=== PATIENT | female | born 1925 | race Caucasian/White ===

== ENCOUNTER 2016-09-18 11:59 | Inpatient (IN) | payer MEDICARE ==
[~2016-09-18] VITALS: Ht 152.4 cm; Wt 73.5 kg
[2016-09-18] MEDS ORDERED: VANCOMYCIN 1.75 GM in IV NORMAL SALINE 500ML BAG 500 ML IV ONE (13:00)
[2016-09-18 13:11] LABS: BASO # 0.1 x10^3/uL (0.0-0.2); BASO % 0 % (0-3); EOS % 0 % (0-3); HEMATOCRIT 30.2 % (36.0-47.0); HEMOGLOBIN 9.2 g/dL (12.0-15.5); LYMPH # 1.2 x10^3/uL (1.0-4.8); LYMPH % 6 % (24-48); MEAN CORPUSCULAR HEMOGLOBIN 23 pg (25-35); MEAN CORPUSCULAR HGB CONC 31 g/dL (31-37); MEAN CORPUSCULAR VOLUME 74 fL (79-100); MONO % 9 % (0-9); NEUT % 84 % (31-73); PLATELET COUNT 564 x10^3/uL (140-400); RED BLOOD COUNT 4.08 x10^6/uL (3.50-5.40); RED CELL DISTRIBUTION WIDTH 18.8 % (11.5-14.5); WHITE BLOOD COUNT 19.5 x10^3/uL (4.0-11.0)
[2016-09-18 13:13] LABS: CREATININE 0.9 mg/dL (0.6-1.0); GFR 59.1
[2016-09-18 13:17] LABS: POTASSIUM 2.9 mmol/L (3.5-5.1)
--- NOTE | 2016-09-18 13:21 | RAD ---
Right lower extremity venous ultrasound, 09/18/2016 : History: Right lower leg redness Duplex evaluation including grayscale, color flow and spectral Doppler analysis was performed. The femoral and popliteal veins show no filling defects to suggest DVT. The visualized calf veins are unremarkable. IMPRESSION: There is no sonographic evidence of deep vein thrombosis in the right lower extremity
[2016-09-18] MEDS ORDERED: ACETAMINOPHEN 325 MG TABLET. PO PRN ×2 (14:15→16:30)
[2016-09-18] MEDS ORDERED: ONDANSETRON PF 4 MG/2 ML VIAL. IV PRN ×2 (14:15→16:30)
[2016-09-18] MEDS ORDERED: FENTANYL PF 100 MCG/2 ML VIAL. IV PRN (14:15)
[2016-09-18 15:00] VITALS: BP 169/64
[2016-09-18 15:21] VITALS: BP 169/64
[2016-09-18] MEDS: POTASSIUM CHLORIDE 10MEQ 100 ML IV SCH ×4 (15:33→18:28)
[2016-09-18] MEDS: VANCOMYCIN PER PHARMACY MC PRN (15:49)
--- NOTE | 2016-09-18 16:24 | PHYS DOC ---
Past Medical History Past Medical History: No Pertinent History Past Surgical History: Appendectomy Alcohol Use: None Drug Use: None Adult General Chief Complaint Chief Complaint: LOWER EXT PAIN HPI HPI Patient is a 89 year old female who presents with right lower extremity cellulitis. Patient has dementia, unable to provide history. Reportedly sent from [facility] for cellulitis for about 2 days. Had been taking doxycycline per medical record. To me she denies any pain. Denies fevers or chills, nausea or vomiting, chest pain, shortness of breath. Review of Systems Review of Systems Constitutional: Denies fever or chills HENT: Denies nasal congestion or sore throat Respiratory: Denies cough or shortness of breath Cardiovascular: Denies chest pain or edema GI: Denies abdominal pain, nausea, vomiting, or diarrhea Musculoskeletal: Denies back pain or joint pain Integument: Reports right lower extremity cellulitis Neurologic: Denies headache, focal weakness or sensory changes Current Medications Current Medications Current Medications Medications (Trade) Dose Ordered Sig/Moris Start Time Stop Time Status Last Admin Dose Admin Vancomycin HCl 1 each 1 each PRN DAILY PRN 09/18/16 12:30 09/18/16 15:49 1 EACH Vancomycin HCl/ Sodium Chloride (Iv Sodium Chloride 0.9% 500ml Bag) 500 ml @ 250 mls/hr 1X ONCE 09/18/16 13:00 09/18/16 14:59 DC 09/18/16 12:40 250 MLS/HR Allergies Allergies Allergies Coded Allergies Type Severity Reaction Last Updated Verified No Known Drug Allergies 09/18/16 No Physical Exam Physical Exam Constitutional: obese, no acute distress, non-toxic appearance. HENT: Normocephalic, atraumatic, bilateral external ears normal, oropharynx moist, nose normal. Eyes: conjunctiva normal, no discharge. Neck: supple, no stridor. Cardiovascular: RRR, no murmurs, no edema. Lungs & Thorax: LCTAB, no wheezing, no respiratory distress. Abdomen: soft, nontender, nondistended. Skin: right lower extremity erythema, warmth, swelling. Back: No tenderness. Extremities: right lower extremity erythema, warmth, swelling from ankle to knee , dp/pt 2+, sensation intact to foot, no ankle or knee tenderness with palpation. Neurologic: Alert and oriented X 2, no focal deficits noted. Psychologic: Affect normal, judgement normal, mood normal. Current Patient Data Vital Signs Vital Signs Date Time Temp Pulse Resp B/P Pulse Ox O2 Delivery O2 Flow Rate FiO2 09/18/16 13:36 79 18 166/67 97 Room Air 09/18/16 12:00 98.2 98.2 Lab Values Laboratory Tests Test 09/18/16 12:05 White Blood Count 19.5x10^3/uL (4.0-11.0) H Red Blood Count 4.08x10^6/uL (3.50-5.40) Hemoglobin 9.2g/dL (12.0-15.5) L Hematocrit 30.2% (36.0-47.0) L Mean Corpuscular Volume 74fL (79-100) L Mean Corpuscular Hemoglobin 23pg (25-35) L Mean Corpuscular Hemoglobin Concent 31g/dL (31-37) Red Cell Distribution Width 18.8% (11.5-14.5) H Platelet Count 564x10^3/uL (140-400) H Neutrophils (%) (Auto) 84% (31-73) H Lymphocytes (%) (Auto) 6% (24-48) L Monocytes (%) (Auto) 9% (0-9) Eosinophils (%) (Auto) 0% (0-3) Basophils (%) (Auto) 0% (0-3) Neutrophils # (Auto) 16.4x10^3uL (1.8-7.7) H Lymphocytes # (Auto) 1.2x10^3/uL (1.0-4.8) Monocytes # (Auto) 1.8x10^3/uL (0.0-1.1) H Eosinophils # (Auto) 0.0x10^3/uL (0.0-0.7) Basophils # (Auto) 0.1x10^3/uL (0.0-0.2) Platelet Estimate Pending Sodium Level 142mmol/L (136-145) Potassium Level 2.9mmol/L (3.5-5.1) *L Chloride Level 102mmol/L (98-107) Carbon Dioxide Level 28mmol/L (21-32) Anion Gap 12 (6-14) Blood Urea Nitrogen 20mg/dL (7-20) Creatinine 0.9mg/dL (0.6-1.0) Estimated GFR (Cockcroft-Gault) 59.1 Glucose Level 132mg/dL (70-99) H Calcium Level 9.0mg/dL (8.5-10.1) LX-Juy-B-Type Natriuretic Peptide 1929pg/mL (0-449) H Laboratory Tests 09/18/16 12:05 Laboratory Tests 09/18/16 12:05 EKG EKG [] Radiology/Procedures Radiology/Procedures PROCEDURE: VENOUS LOWER EXTREMITY RIGHT Right lower extremity venous ultrasound, 09/18/2016 : History: Right lower leg redness Duplex evaluation including grayscale, color flow and spectral Doppler analysis was performed. The femoral and popliteal veins show no filling defects to suggest DVT. The visualized calf veins are unremarkable. IMPRESSION: There is no sonographic evidence of deep vein thrombosis in the right lower extremity DICTATED and SIGNED BY: ROSSY ESPINOSA MD DATE: 09/18/16 1317 [] Course & Med Decision Making Course & Med Decision Making Pertinent Labs and Imaging studies reviewed. (See chart for details) Patient presents with right lower extremity cellulitis. Afebrile, elevated white blood cell count. Had been taking doxycycline with progression of illness. Recommended admission to the hospital for further evaluation and treatment. Administered vancomycin here. Discussed with Dr. Barr who agrees to admit to inpatient status. Patient admitted in stable condition. [] Dragon Disclaimer Dragon Disclaimer This electronic medical record was generated, in whole or in part, using a voice recognition dictation system. Departure Departure Impression: Primary Impression: Cellulitis of right lower extremity Additional Impressions: Leukocytosis Essential hypertension Hypokalemia Disposition: ADMITTED INPATIENT Condition: STABLE Referrals: NO PCP (PCP) Problem Qualifiers FADY PUENTE MD Sep 18, 2016 16:24
[2016-09-18] MEDS ORDERED: HYDROCODONE/APAP 5/325MG TABLET. PO PRN (16:30)
[2016-09-18] MEDS ORDERED: ALBUTEROL SULFATE 2.5 MG/3 ML NEBU. NEB PRN (16:30)
[2016-09-18] MEDS ORDERED: hydrALAZINE 20 MG/ML VIAL. IVP PRN (16:30)
[2016-09-18 16:57] LABS: PLT ESTIMATE INCREASED (ADEQUATE); POLYCHROMASIA SLIGHT
[2016-09-18 16:58] LABS: ANISOCYTOSIS SLIGHT; CRENATED RBC PRESENT; OVALOCYTES OCC; SCHISTOCYTES FEW
[2016-09-18] MEDS ORDERED: DOXY100T PO (17:33)
[2016-09-18] MEDS ORDERED: ACET325T9 PO (17:33)
[2016-09-18] MEDS ORDERED: POTA10CA PO (17:33)
[2016-09-18] MEDS ORDERED: FURO-69 PO (17:33)
--- NOTE | 2016-09-18 18:14 | ACF ---
Admission Forms Criteria CELLULITIS Clinical Indications for Admission to Inpatient Care (Place 'X' for any and all applicable criteria): Admission is indicated for ANY ONE of the following(1)(2)(3)(4)(5): [ ]I. Limb-threatening infection [ ]II. High-risk comorbid condition as indicated by ANY ONE of the following: [ ]a) Uncontrolled diabetes (eg, HbA1c greater than 10% (0.1)) [ ]b) Cirrhosis [ ]c) Neutropenia [ ]d) Asplenia [ ]e) Immunosuppression [ ]f) Symptomatic heart failure [ ]III. Failure of outpatient therapy as indicated by ALL of the following: [ ]a) Progression or no improvement after adequate trial (minimum of 48 hours, with longer period for stable lower extremity infection) [ ]b) Adequate antibiotic regimen as indicated by use of ANY ONE of the following: [ ]i) First-generation cephalosporin (e.g., cephalexin) [ ]ii) Antistaphylococcal penicillin (e.g., dicloxacillin) [ ]iii) Penicillin-allergic patient regimen (clindamycin, extended-spectrum fluoroquinolone, or doxycycline) [ ]iv) Resistant organism (eg, methicillin-resistant Staphylococcus aureus) regimen (6) [ ]c) Outpatient intravenous therapy regimen is not appropriate due to ANY ONE of the following. (7)(8)(9)(10): [ ]i) It was tried and was not successful (eg, progression of infection). [ ]ii) It is not available or cannot be arranged in a clinically appropriate time frame (e.g., the next day). [ ]iii) Clinical presentation (eg, acuity of infection, rapidity of progression, confirmed or suspected bacteremia) is judged to require ALL of the following: [ ]1) Immediate initiation of intravenous therapy ( eg, cannot wait for next day) [ ]2) Intensity of patient monitoring and observation (eg, vital sign measurement, checks for infection progression) that cannot be provided at other than inpatient level of care [ ]IV. Mental status changes [ ]V. Bacteremia [ ]. Hemodynamic instability [ ]VII. Suspected necrotizing soft tissue infection (e.g., gas in tissue)(11)( 12) [ ]VIII. Orbital infection (13)(14) [ ]IX. Associated surgical procedure (e.g., abscess drainage, debridement) not amenable to outpatient, emergency department, or observation care [ ]X. Cutaneous gangrene [ ]XI. High fever (temperature greater than 39.5 degrees C (103.1 degrees F) (oral)) not responsive to outpatient, emergency department, or observation care therapy [X]XIII. Inpatient admission required rather than observation care (Also use Cellulitis: Observation Care as appropriate) because of ANY ONE of the following : [ ]a) Periorbital or perineal infection that is severe or worsening [ ]b) Severe pain requiring acute inpatient management [ ]c) IV fluid to replace significant ongoing (e.g., for over 24 hours) losses (greater than 3L/m2 per day) [ ]d) Compartment syndrome monitoring (17) [ ]e) Strict or protective (eg, laminar flow) isolation [ ]f) Urgent debridement or skin grafting [ ]g) Bone or joint debridement [ ]h) Immediate inpatient surgery [X]i) Other condition, treatment or monitoring requiring inpatient admission Extended stay beyond goal length of stay may be needed for (1)(18): [ ]a) Necrotizing soft tissue infection or fasciitis [ ]b) Gram-negative infection [ ]c) Methicillin-resistant Staphylococcal aureus (MRSA) infection [ ]d) Peripheral venous insufficiency with cellulitis [ ]e) Extensive edema [ ]f) Sepsis or continued Hemodynamic instability [ ]g) Continued high fever or mental status change [ ]h) Bacteremia [ ]i) Active serious comorbid conditions ( eg, heart failure, renal insufficiency) The original [employer] [employer] content created by [employer] has been revised. The portions of the content which have been revised are identified through the use of italic text or in bold, and [facility] has neither reviewed nor approved the modified material. All other unmodified content is copyright [employer] [facility] Please see references footnoted in the original [employer] [employer] edition 2016 Admission Criteria Met?: Yes NÉSTOR LEVY Sep 18, 2016 18:14
[2016-09-18 19:00] VITALS: BP 159/74
--- NOTE | 2016-09-18 21:10 | PDOC1 ---
History and Physical Current Problem List Problem List Problems Medical Problems: (1) Cellulitis Status: Acute (2) Cellulitis of right lower extremity Status: Acute (3) Essential hypertension Status: Acute (4) Hypokalemia Status: Acute (5) Leukocytosis Status: Acute Current Medications Current Medications Current Medications Medications (Trade) Dose Ordered Sig/Moris Start Time Stop Time Status Last Admin Dose Admin Acetaminophen (Tylenol) 650 mg PRN Q6HRS PRN 09/18/16 16:30 Acetaminophen 650 mg 650 mg PRN Q4HRS PRN 09/18/16 14:15 09/19/16 14:14 Acetaminophen/ Hydrocodone Bitart (Lortab 5/325) 1 tab PRN Q6HRS PRN 09/18/16 16:30 Albuterol Sulfate (Ventolin Neb Soln) 2.5 mg PRN Q4HRS PRN 09/18/16 16:30 Fentanyl Citrate (Fentanyl 2ml Vial) 25 mcg PRN Q2HR PRN 09/18/16 14:15 09/19/16 14:14 Hydralazine HCl (Apresoline) 10 mg PRN Q4HRS PRN 09/18/16 16:30 Ondansetron HCl (Zofran) 4 mg PRN Q6HRS PRN 09/18/16 16:30 Potassium Chloride 100 ml @ 100 mls/hr Q1H 09/18/16 14:30 09/18/16 18:29 DC 09/18/16 18:28 100 MLS/HR Vancomycin HCl 1 each 1X ONCE 09/20/16 11:30 09/20/16 11:31 Vancomycin HCl 1 each 1 each PRN DAILY PRN 09/18/16 12:30 09/18/16 15:49 1 EACH Vancomycin HCl/ Sodium Chloride (Iv Sodium Chloride 0.9% 250ml) 250 ml @ 250 mls/hr Q24H 09/19/16 12:00 Vancomycin HCl/ Sodium Chloride (Iv Sodium Chloride 0.9% 500ml Bag) 500 ml @ 250 mls/hr 1X ONCE 09/18/16 13:00 09/18/16 14:59 DC 09/18/16 12:40 250 MLS/HR Allergies Allergies Allergies Coded Allergies Type Severity Reaction Last Updated Verified No Known Drug Allergies 09/18/16 No ROS Review of System CONSTITUTIONAL: No fever or chills EYES: No recent changes SKIN: RLE rash CARDIOVASCULAR: No chest pain, syncope, palpitations, or edema RESPIRATORY: No SOB or cough GASTROINTESTINAL: No nausea, vomiting or abdominal pain NEUROLOGICAL: Dementia. ENDOCRINE: No cold or heat intolerance GENITOURINARY: No urgency or frequency of urination MUSCULOSKELETAL: No back pain or joint pain LYMPHATICS: No enlarged lymph nodes PSYCHIATRIC: No anxiety or depression Physical Exam Physical Exam GEN.: No apparent distress. Alert and oriented. HEENT: Head is normocephalic, atraumatic NECK: Supple. no JVD LUNGS: Clear to auscultation. normal airflow HEART: RRR, S1, S2 present. Peripheral pulses intact ABDOMEN: Soft, nontender. Positive bowel sounds. EXTREMITIES: Without any cyanosis. NEUROLOGIC: alert, she thinks she lives in [place] PSYCHIATRIC: pleasant, SKIN: RLE - Erythema on ankle to knee, dorsal Vitals Vitals Vital Signs Date Time Temp Pulse Resp B/P Pulse Ox O2 Delivery O2 Flow Rate FiO2 09/18/16 19:32 95 Room Air 09/18/16 19:00 98.2 83 20 159/74 98.2 09/18/16 15:21 2.0 Labs Labs Laboratory Tests Test 09/18/16 12:05 White Blood Count 19.5x10^3/uL (4.0-11.0) Red Blood Count 4.08x10^6/uL (3.50-5.40) Hemoglobin 9.2g/dL (12.0-15.5) Hematocrit 30.2% (36.0-47.0) Mean Corpuscular Volume 74fL (79-100) Mean Corpuscular Hemoglobin 23pg (25-35) Mean Corpuscular Hemoglobin Concent 31g/dL (31-37) Red Cell Distribution Width 18.8% (11.5-14.5) Platelet Count 564x10^3/uL (140-400) Neutrophils (%) (Auto) 84% (31-73) Lymphocytes (%) (Auto) 6% (24-48) Monocytes (%) (Auto) 9% (0-9) Eosinophils (%) (Auto) 0% (0-3) Basophils (%) (Auto) 0% (0-3) Neutrophils # (Auto) 16.4x10^3uL (1.8-7.7) Lymphocytes # (Auto) 1.2x10^3/uL (1.0-4.8) Monocytes # (Auto) 1.8x10^3/uL (0.0-1.1) Eosinophils # (Auto) 0.0x10^3/uL (0.0-0.7) Basophils # (Auto) 0.1x10^3/uL (0.0-0.2) Segmented Neutrophils % 92% (35-66) Lymphocytes % 3% (24-48) Monocytes % 5% (0-10) Platelet Estimate Increased (ADEQUATE) Polychromasia Slight Anisocytosis Slight Ovalocytes Occ Crenated Cell Present Schistocytes Few Sodium Level 142mmol/L (136-145) Potassium Level 2.9mmol/L (3.5-5.1) Chloride Level 102mmol/L (98-107) Carbon Dioxide Level 28mmol/L (21-32) Anion Gap 12 (6-14) Blood Urea Nitrogen 20mg/dL (7-20) Creatinine 0.9mg/dL (0.6-1.0) Estimated GFR (Cockcroft-Gault) 59.1 Glucose Level 132mg/dL (70-99) Calcium Level 9.0mg/dL (8.5-10.1) QP-Bqq-V-Type Natriuretic Peptide 1929pg/mL (0-449) Laboratory Tests Test 09/18/16 12:05 White Blood Count 19.5x10^3/uL (4.0-11.0) Red Blood Count 4.08x10^6/uL (3.50-5.40) Hemoglobin 9.2g/dL (12.0-15.5) Hematocrit 30.2% (36.0-47.0) Mean Corpuscular Volume 74fL (79-100) Mean Corpuscular Hemoglobin 23pg (25-35) Mean Corpuscular Hemoglobin Concent 31g/dL (31-37) Red Cell Distribution Width 18.8% (11.5-14.5) Platelet Count 564x10^3/uL (140-400) Neutrophils (%) (Auto) 84% (31-73) Lymphocytes (%) (Auto) 6% (24-48) Monocytes (%) (Auto) 9% (0-9) Eosinophils (%) (Auto) 0% (0-3) Basophils (%) (Auto) 0% (0-3) Neutrophils # (Auto) 16.4x10^3uL (1.8-7.7) Lymphocytes # (Auto) 1.2x10^3/uL (1.0-4.8) Monocytes # (Auto) 1.8x10^3/uL (0.0-1.1) Eosinophils # (Auto) 0.0x10^3/uL (0.0-0.7) Basophils # (Auto) 0.1x10^3/uL (0.0-0.2) Segmented Neutrophils % 92% (35-66) Lymphocytes % 3% (24-48) Monocytes % 5% (0-10) Platelet Estimate Increased (ADEQUATE) Polychromasia Slight Anisocytosis Slight Ovalocytes Occ Crenated Cell Present Schistocytes Few Sodium Level 142mmol/L (136-145) Potassium Level 2.9mmol/L (3.5-5.1) Chloride Level 102mmol/L (98-107) Carbon Dioxide Level 28mmol/L (21-32) Anion Gap 12 (6-14) Blood Urea Nitrogen 20mg/dL (7-20) Creatinine 0.9mg/dL (0.6-1.0) Estimated GFR (Cockcroft-Gault) 59.1 Glucose Level 132mg/dL (70-99) Calcium Level 9.0mg/dL (8.5-10.1) UI-Dhr-J-Type Natriuretic Peptide 1929pg/mL (0-449) VTE Prophylaxis Ordered VTE Prophylaxis Devices: Yes VTE Pharmacological Prophylaxi: Yes URSULA LAO MD Sep 18, 2016 21:10
[2016-09-18] MEDS: HEPARIN PF for SUB-Q USE 5,000 UNIT/0.5 ML VIAL. SQ SCH (22:40)
[2016-09-18 23:06] VITALS: BP 158/61
--- NOTE | 2016-09-19 00:41 | HP ---
ADMIT DATE: 09/18/2016 CHIEF COMPLAINT: Right lower extremity redness. HISTORY OF PRESENT ILLNESS: An 89-year-old female patient with possible dementia, brought to the hospital from [facility] with complaints of right lower extremity redness, which started nearly a few days ago. At the time of my examination, the patient denies any pain. She is very pleasant; however, she is not able to provide good history. She thinks that her brain is not working properly these days. Reportedly, the patient was taking some doxycycline in the [place] [facility]; however, symptoms did not improve; most of the history is obtained from the ER notes. No immediate family available for confirmation. PAST MEDICAL HISTORY: Not able to obtain. PAST SURGICAL HISTORY: Possible appendectomy. PERSONAL HISTORY: The patient lives in a [place] [facility]. ALLERGIES: NKDA. REVIEW OF SYSTEMS AND PHYSICAL EXAMINATION: Please see my electronic H and P. LABORATORY FINDINGS: WBC 19.5, hemoglobin is 9.2, hematocrit 30.2, platelets 564. Potassium 2.9, sodium 142, carbon dioxide 28, BUN 20, creatinine 0.9, chloride is 132. Right lower extremity venous ultrasound did not show any DVT. ASSESSMENT: 1. Right lower extremity cellulitis. 2. Leukocytosis. 3. Hypokalemia. 4. Essential hypertension. PLAN: 1. She has been placed on vancomycin, pharmacy to dose vancomycin. 2. We will consult Infectious Disease. 3. Home medications need to be verified and once we verify with the [place] [facility], we will continue home medications. 4. P.r.n. hydralazine for high blood pressure. 5. Potassium has been replaced. 6. Pain control with Lortab. 7. DVT prophylaxis with heparin. 8. Prognosis is guarded. URSULA LAO MD DR: SIENNA/som JOB#: [id number] / [id number] ELI
[2016-09-19 02:36] VITALS: BP 128/47
[2016-09-19 04:34] LABS: BASO # 0.1 x10^3/uL (0.0-0.2); BASO % 0 % (0-3); EOS % 0 % (0-3); HEMATOCRIT 25.7 % (36.0-47.0); LYMPH # 1.5 x10^3/uL (1.0-4.8); LYMPH % 8 % (24-48); MEAN CORPUSCULAR HEMOGLOBIN 23 pg (25-35); MEAN CORPUSCULAR HGB CONC 31 g/dL (31-37); MEAN CORPUSCULAR VOLUME 74 fL (79-100); MONO % 9 % (0-9); NEUT % 83 % (31-73); PLATELET COUNT 477 x10^3/uL (140-400); RED CELL DISTRIBUTION WIDTH 18.8 % (11.5-14.5); WHITE BLOOD COUNT 19.2 x10^3/uL (4.0-11.0)
[2016-09-19 04:43] LABS: CALCIUM 8.3 mg/dL (8.5-10.1); CREATININE 0.8 mg/dL (0.6-1.0); GFR 67.7; POTASSIUM 3.2 mmol/L (3.5-5.1)
[2016-09-19] MEDS: HEPARIN PF for SUB-Q USE 5,000 UNIT/0.5 ML VIAL. SQ SCH ×3 (06:09→21:50)
[2016-09-19 07:00] VITALS: BP 166/60
[2016-09-19] MEDS: VANCOMYCIN PER PHARMACY MC PRN (10:17)
[2016-09-19] MEDS ORDERED: ACETAMINOPHEN 325 MG TABLET. PO PRN (10:45)
--- NOTE | 2016-09-19 10:49 | PDOC ---
PROGRESS NOTES Chief Complaint Chief Complaint 1. Right LE cellulitis. ASSESSMENT AND PLAN: 1. Cellulitis: failed O/P doxy, now on vanco. mild erythema, edema improved. appreciate ID service input 2. Leukocytosis: ongoing, reactive. 3. Hypokalemia: sl improved. most likely related to Po lasix at home. replete orally 4. HTN: no home meds x lasix. consider low dose AVERY-I. IV hydralazine PRN 5. Anemia: microcytic with thrombocytosis. suspicious for iron deficiency. obtain iron labs 6. Prophylaxis: heparin Vitals Vitals Vital Signs Date Time Temp Pulse Resp B/P Pulse Ox O2 Delivery O2 Flow Rate FiO2 09/19/16 07:00 98.8 89 16 166/60 91 Room Air 98.8 09/18/16 15:21 2.0 Labs LABS Laboratory Tests Test 09/18/16 12:05 09/18/16 16:40 09/19/16 03:55 White Blood Count 19.5x10^3/uL (4.0-11.0) 19.2x10^3/uL (4.0-11.0) Red Blood Count 4.08x10^6/uL (3.50-5.40) 3.50x10^6/uL (3.50-5.40) Hemoglobin 9.2g/dL (12.0-15.5) 8.0g/dL (12.0-15.5) Hematocrit 30.2% (36.0-47.0) 25.7% (36.0-47.0) Mean Corpuscular Volume 74fL (79-100) 74fL (79-100) Mean Corpuscular Hemoglobin 23pg (25-35) 23pg (25-35) Mean Corpuscular Hemoglobin Concent 31g/dL (31-37) 31g/dL (31-37) Red Cell Distribution Width 18.8% (11.5-14.5) 18.8% (11.5-14.5) Platelet Count 564x10^3/uL (140-400) 477x10^3/uL (140-400) Neutrophils (%) (Auto) 84% (31-73) 83% (31-73) Lymphocytes (%) (Auto) 6% (24-48) 8% (24-48) Monocytes (%) (Auto) 9% (0-9) 9% (0-9) Eosinophils (%) (Auto) 0% (0-3) 0% (0-3) Basophils (%) (Auto) 0% (0-3) 0% (0-3) Neutrophils # (Auto) 16.4x10^3uL (1.8-7.7) 15.9x10^3uL (1.8-7.7) Lymphocytes # (Auto) 1.2x10^3/uL (1.0-4.8) 1.5x10^3/uL (1.0-4.8) Monocytes # (Auto) 1.8x10^3/uL (0.0-1.1) 1.7x10^3/uL (0.0-1.1) Eosinophils # (Auto) 0.0x10^3/uL (0.0-0.7) 0.0x10^3/uL (0.0-0.7) Basophils # (Auto) 0.1x10^3/uL (0.0-0.2) 0.1x10^3/uL (0.0-0.2) Segmented Neutrophils % 92% (35-66) Lymphocytes % 3% (24-48) Monocytes % 5% (0-10) Platelet Estimate Increased (ADEQUATE) Polychromasia Slight Anisocytosis Slight Ovalocytes Occ Crenated Cell Present Schistocytes Few Sodium Level 142mmol/L (136-145) 139mmol/L (136-145) Potassium Level 2.9mmol/L (3.5-5.1) 3.2mmol/L (3.5-5.1) Chloride Level 102mmol/L (98-107) 104mmol/L (98-107) Carbon Dioxide Level 28mmol/L (21-32) 26mmol/L (21-32) Anion Gap 12 (6-14) 9 (6-14) Blood Urea Nitrogen 20mg/dL (7-20) 15mg/dL (7-20) Creatinine 0.9mg/dL (0.6-1.0) 0.8mg/dL (0.6-1.0) Estimated GFR (Cockcroft-Gault) 59.1 67.7 Glucose Level 132mg/dL (70-99) 101mg/dL (70-99) Calcium Level 9.0mg/dL (8.5-10.1) 8.3mg/dL (8.5-10.1) FH-Fpd-C-Type Natriuretic Peptide 1929pg/mL (0-449) Nasal Screen MRSA (PCR) Positive (Negative) Review of Systems Review of Systems feels ok, denies pain PATRICK FLOWERS MD Sep 19, 2016 10:49
[2016-09-19 10:54] VITALS: BP 163/74
[2016-09-19 10:58] LABS: % SAT IRON 6 % (15-34); IRON,SERUM 12 ug/dL (50-170)
[2016-09-19] MEDS ORDERED: FUROSEMIDE 20 MG TABLET PO SCH (12:00)
[2016-09-19] MEDS: VANCOMYCIN 1 GM in IV NORMAL SALINE 250ML 250 ML IV SCH (12:15)
[2016-09-19] MEDS: FUROSEMIDE 20 MG TABLET PO SCH (12:16)
[2016-09-19] MEDS: POTASSIUM CHLORIDE 10 MEQ TABLET.ER. PO SCH (12:16)
--- NOTE | 2016-09-19 12:38 | PDOC ---
Infectious Disease Note Vital Sign Vital Signs Vital Signs Date Time Temp Pulse Resp B/P Pulse Ox O2 Delivery O2 Flow Rate FiO2 09/19/16 10:54 97.9 72 16 163/74 90 Room Air 97.9 09/18/16 15:21 2.0 Labs Lab Laboratory Tests Test 09/18/16 16:40 09/19/16 03:55 09/19/16 05:50 Nasal Screen MRSA (PCR) Positive (Negative) White Blood Count 19.2x10^3/uL (4.0-11.0) Red Blood Count 3.50x10^6/uL (3.50-5.40) Hemoglobin 8.0g/dL (12.0-15.5) Hematocrit 25.7% (36.0-47.0) Mean Corpuscular Volume 74fL (79-100) Mean Corpuscular Hemoglobin 23pg (25-35) Mean Corpuscular Hemoglobin Concent 31g/dL (31-37) Red Cell Distribution Width 18.8% (11.5-14.5) Platelet Count 477x10^3/uL (140-400) Neutrophils (%) (Auto) 83% (31-73) Lymphocytes (%) (Auto) 8% (24-48) Monocytes (%) (Auto) 9% (0-9) Eosinophils (%) (Auto) 0% (0-3) Basophils (%) (Auto) 0% (0-3) Neutrophils # (Auto) 15.9x10^3uL (1.8-7.7) Lymphocytes # (Auto) 1.5x10^3/uL (1.0-4.8) Monocytes # (Auto) 1.7x10^3/uL (0.0-1.1) Eosinophils # (Auto) 0.0x10^3/uL (0.0-0.7) Basophils # (Auto) 0.1x10^3/uL (0.0-0.2) Sodium Level 139mmol/L (136-145) Potassium Level 3.2mmol/L (3.5-5.1) Chloride Level 104mmol/L (98-107) Carbon Dioxide Level 26mmol/L (21-32) Anion Gap 9 (6-14) Blood Urea Nitrogen 15mg/dL (7-20) Creatinine 0.8mg/dL (0.6-1.0) Estimated GFR (Cockcroft-Gault) 67.7 Glucose Level 101mg/dL (70-99) Calcium Level 8.3mg/dL (8.5-10.1) Iron Level 12ug/dL (50-170) Total Iron Binding Capacity 206ug/dL (250-450) Iron Saturation 6% (15-34) Ferritin 73ng/mL (8-252) Objective Assessment Cellulitis of RLE - warm but not overtly tender -Failed OP doxy Leukocytosis MRSA nares positive Dementia HTN Plan Plan of Care vanc - leg appears to be wrinkling already - hopefully improving. Will need compression when improves more Monitor response CBC in am Leg elevation Thank you Attending Co-Sign Attending Co-Sign The patient was seen and interviewed as well as examined at the bedside. The chart was reviewed. The case was discussed. Agree with the plan of care. KAILEY SCHILLING APRN Sep 19, 2016 12:38 ANN-MARIE VIDES MD Sep 19, 2016 13:30
[2016-09-19 14:55] VITALS: BP 148/62
[2016-09-19 19:59] VITALS: BP 149/63
[2016-09-19 23:59] VITALS: BP 152/54
[2016-09-20 03:59] VITALS: BP 159/68
[2016-09-20] MEDS: HEPARIN PF for SUB-Q USE 5,000 UNIT/0.5 ML VIAL. SQ SCH ×3 (05:37→21:23)
[2016-09-20 05:54] LABS: BASO % 0 % (0-3); EOS % 0 % (0-3); HEMATOCRIT 25.9 % (36.0-47.0); HEMOGLOBIN 7.9 g/dL (12.0-15.5); LYMPH # 1.7 x10^3/uL (1.0-4.8); LYMPH % 10 % (24-48); MEAN CORPUSCULAR HEMOGLOBIN 23 pg (25-35); MEAN CORPUSCULAR HGB CONC 31 g/dL (31-37); MEAN CORPUSCULAR VOLUME 74 fL (79-100); MONO % 7 % (0-9); NEUT % 82 % (31-73); PLATELET COUNT 536 x10^3/uL (140-400); RED BLOOD COUNT 3.51 x10^6/uL (3.50-5.40); RED CELL DISTRIBUTION WIDTH 19.4 % (11.5-14.5); WHITE BLOOD COUNT 17.7 x10^3/uL (4.0-11.0)
[2016-09-20 07:00] VITALS: BP 145/66
[2016-09-20] MEDS: POTASSIUM CHLORIDE 10 MEQ TABLET.ER. PO SCH (07:56)
[2016-09-20] MEDS: FUROSEMIDE 20 MG TABLET PO SCH (07:57)
--- NOTE | 2016-09-20 10:18 | PDOC ---
Infectious Disease Note Subjective Subjective Comfortable Denies pain ROS ROS GEN: Denies fevers, chills, sweats CV: Denies chest pain RESP: Denies shortness of air, cough GI: Denies n/v/d Vital Sign Vital Signs Vital Signs Date Time Temp Pulse Resp B/P Pulse Ox O2 Delivery O2 Flow Rate FiO2 09/20/16 07:00 97.9 72 18 145/66 93 Room Air 97.9 Physical Exam PHYSICAL EXAM GENERAL: Propped up in bed, NAD HEENT: OC/OP clear LUNGS: Clear HEART: S1S2, no gallop, no murmur. ABD: Soft, NT EXT: RLE swelling, redness starting to fade some, slightly warm, nontender, distal pulse palpable COSMETICIAN: Alert, confused, repetitive questioning SKIN: No rash IV: ok Labs Lab Laboratory Tests Test 09/20/16 05:00 White Blood Count 17.7x10^3/uL (4.0-11.0) Red Blood Count 3.51x10^6/uL (3.50-5.40) Hemoglobin 7.9g/dL (12.0-15.5) Hematocrit 25.9% (36.0-47.0) Mean Corpuscular Volume 74fL (79-100) Mean Corpuscular Hemoglobin 23pg (25-35) Mean Corpuscular Hemoglobin Concent 31g/dL (31-37) Red Cell Distribution Width 19.4% (11.5-14.5) Platelet Count 536x10^3/uL (140-400) Neutrophils (%) (Auto) 82% (31-73) Lymphocytes (%) (Auto) 10% (24-48) Monocytes (%) (Auto) 7% (0-9) Eosinophils (%) (Auto) 0% (0-3) Basophils (%) (Auto) 0% (0-3) Neutrophils # (Auto) 14.6x10^3uL (1.8-7.7) Lymphocytes # (Auto) 1.7x10^3/uL (1.0-4.8) Monocytes # (Auto) 1.3x10^3/uL (0.0-1.1) Eosinophils # (Auto) 0.1x10^3/uL (0.0-0.7) Basophils # (Auto) 0.0x10^3/uL (0.0-0.2) Objective Assessment Cellulitis of RLE -Failed OP doxy Leukocytosis, improved some MRSA nares positive Dementia HTN Plan Plan of Care vanc Leg compression today Leg elevation D/w nursing Attending Co-Sign Attending Co-Sign The patient was seen and interviewed as well as examined at the bedside. The chart was reviewed. The case was discussed. Agree with the plan of care. KAILEY SCHILLING APRN Sep 20, 2016 10:17 ANN-MARIE VIDES MD Sep 20, 2016 12:44
[2016-09-20 10:57] VITALS: BP 142/66
[2016-09-20] MEDS: VANCOMYCIN 1 GM in IV NORMAL SALINE 250ML 250 ML IV SCH (12:25)
[2016-09-20] MEDS: VANCOMYCIN PER PHARMACY MC PRN (12:26)
[2016-09-20] MEDS: LINEZOLID 600 MG TABLET PO SCH ×2 (13:52→20:28)
--- NOTE | 2016-09-20 14:04 | PDOC ---
PROGRESS NOTES Chief Complaint Chief Complaint 1. Right LE cellulitis. ASSESSMENT AND PLAN: 1. Cellulitis: improving slowly. failed O/P doxy, now on vanco. 2. Leukocytosis: mild improvement, but still quite elevated. reactive. 3. Hypokalemia: sl improved. most likely related to Po lasix at home. replete orally 4. HTN: no home meds x lasix. consider low dose AVERY-I. IV hydralazine PRN 5. Anemia: microcytic with thrombocytosis. iron studies c/w iron deficiency and inflammatory anemia (low TIBC). give venofer x1, then low dose PO iron 6. Prophylaxis: heparin Vitals Vitals Vital Signs Date Time Temp Pulse Resp B/P Pulse Ox O2 Delivery O2 Flow Rate FiO2 09/20/16 10:57 97.9 95 18 142/66 92 Room Air 97.9 Physical Exam General: Alert, Oriented X3, Cooperative Heart: Regular rate Lungs: Clear Abdomen: Normal bowel sounds, Soft, No tenderness Extremities: Other (erythema, edema L LE from knee to ankle, sl improved) Labs LABS Laboratory Tests Test 09/20/16 05:00 09/20/16 11:30 White Blood Count 17.7x10^3/uL (4.0-11.0) Red Blood Count 3.51x10^6/uL (3.50-5.40) Hemoglobin 7.9g/dL (12.0-15.5) Hematocrit 25.9% (36.0-47.0) Mean Corpuscular Volume 74fL (79-100) Mean Corpuscular Hemoglobin 23pg (25-35) Mean Corpuscular Hemoglobin Concent 31g/dL (31-37) Red Cell Distribution Width 19.4% (11.5-14.5) Platelet Count 536x10^3/uL (140-400) Neutrophils (%) (Auto) 82% (31-73) Lymphocytes (%) (Auto) 10% (24-48) Monocytes (%) (Auto) 7% (0-9) Eosinophils (%) (Auto) 0% (0-3) Basophils (%) (Auto) 0% (0-3) Neutrophils # (Auto) 14.6x10^3uL (1.8-7.7) Lymphocytes # (Auto) 1.7x10^3/uL (1.0-4.8) Monocytes # (Auto) 1.3x10^3/uL (0.0-1.1) Eosinophils # (Auto) 0.1x10^3/uL (0.0-0.7) Basophils # (Auto) 0.0x10^3/uL (0.0-0.2) Vancomycin Level Trough 12.0mcg/mL (10.0-20.0) Vancomycin Last Dose Date 09/19/16 Vancomycin Last Dose Time 1200 Review of Systems Review of Systems feels ok. claims leg not bothering her PATRICK FLOWERS MD Sep 20, 2016 14:04
[2016-09-20 14:42] VITALS: BP 140/62
[2016-09-20] MEDS ORDERED: IRON SUCROSE COMPLEX 500 MG in IV NORMAL SALINE 250ML 250 ML IV ONE (14:45)
[2016-09-20 19:19] VITALS: BP 140/75
[2016-09-20] MEDS ORDERED: FERROUS SULFATE 325 MG TABLET. PO SCH (21:00)
[2016-09-20 23:00] VITALS: BP 160/71
[2016-09-21 02:30] VITALS: BP 164/70
--- NOTE | 2016-09-21 03:23 | CONS ---
DATE OF CONSULTATION: 09/18/2016 This is Bry Back, nurse practitioner, dictating for Dr. Ann-Marie Vides, Infectious Disease. REFERRING PHYSICIAN: Dr. Barr. REASON FOR CONSULTATION: Right lower extremity cellulitis. CONSULTING PHYSICIAN: Dr. Jeronimo. HISTORY OF PRESENT ILLNESS: The patient is an 89-year-old female who is a custodial resident with a history of dementia. According to the medical records, she presented with progressive swelling and redness of the right leg that started about 2 days ago. She was started on doxycycline without improvement. No fever reported. She had leukocytosis. Venous Doppler showed no evidence of deep vein thrombosis. She was started on vancomycin in the ER for cellulitis. PAST MEDICAL HISTORY: Dementia, incontinence, hypertension. PAST SURGICAL HISTORY: Hysterectomy and appendectomy. FAMILY HISTORY: Noncontributory. SOCIAL HISTORY: senior living resident. ALLERGIES: No known drug allergies. MEDICATIONS: Vancomycin. Other medications are available and have been reviewed on the MAR. REVIEW OF SYSTEMS: The patient is feeling well. She reports minimal leg pain. She is not quite sure if it looks any better. She denies chills or aches. Denies nausea, vomiting or diarrhea. Denies cough, chest discomfort or headache. Her appetite is okay. PHYSICAL EXAMINATION: GENERAL: female sitting on the side of the bed, eating lunch. VITAL SIGNS: Afebrile. Blood pressure 163/74, heart rate 72, respiratory rate 16, pulse oximetry is 98% on room air. Weight is 162 pounds. HEENT: Pupils equally round. Normal conjunctivae. Oral mucosa is pink and moist. NECK: Supple. LUNGS: Clear to auscultation. HEART: Normal S1 and S2. ABDOMEN: Bowel sounds are present, soft, nontender. EXTREMITIES: Unremarkable except for right lower extremity is brightly erythematous below the knee cap and above ankle. Warm and edematous. Mildly tender. SKIN: Without rash. NEUROLOGIC: Alert, answers simple questions appropriately. Poor historian. LABORATORY DATA: Today's WBC is 19.2 from 19.5 on admission. Hemoglobin is 8.0, platelet count is 477,000. Sodium 139, potassium 3.2, creatinine 0.8, BUN 15. BNP 1929. MRSA screen positive. Venous Doppler per HPI. IMPRESSION: 1. Cellulitis of right lower extremity. 2. Leukocytosis. 3. Methicillin-resistant Staphylococcus aureus ____, positive. 4. Dementia. 5. Hypertension. PLAN: Continue the vancomycin. She will need compression when the leg improves further. Continue to monitor response. Repeat CBC in the morning. Leg elevation. Thank you, Dr. Barr for asking us to participate in this patient's care. Should you have further questions or concerns, please call. The patient is seen, examined and plan of care implemented by Dr. Ann-Marie Vides. ANN-MARIE VIDES MD DR: MARY/som JOB#: [id number] / [id number]
[2016-09-21] MEDS: HEPARIN PF for SUB-Q USE 5,000 UNIT/0.5 ML VIAL. SQ SCH (05:43)
[2016-09-21 07:00] VITALS: BP 152/68
[2016-09-21] MEDS: FUROSEMIDE 20 MG TABLET PO SCH (09:14)
[2016-09-21] MEDS: LINEZOLID 600 MG TABLET PO SCH (09:14)
[2016-09-21] MEDS: POTASSIUM CHLORIDE 10 MEQ TABLET.ER. PO SCH (09:14)
--- NOTE | 2016-09-21 10:24 | PDOC ---
Infectious Disease Note Subjective Subjective Better. likes the tubigrip. Wants to know where her is Denies pain ROS ROS GEN: Denies fevers, chills, sweats HEENT: Denies blurred vision, sore throat CV: Denies chest pain RESP: Denies shortness of air, cough GI: Denies n/v/d NEURO: Denies confusion, dizziness MSK: Denies weakness, joint pain/swelling Vital Sign Vital Signs Vital Signs Date Time Temp Pulse Resp B/P Pulse Ox O2 Delivery O2 Flow Rate FiO2 09/21/16 07:00 97.8 93 18 152/68 96 Room Air 97.8 Physical Exam PHYSICAL EXAM GENERAL: NAD, Alert HEENT: PERRL, OC/OP - clear NECK: Supple, no JVD, no LN LUNGS: Clear HEART: S1S2, no gallop, no murmur ABD: Soft, NT, no organomegaly, no rebound EXT: RLE with tubigrip. Trace edema, Less erythema/tenderness and warmth. no cyanosis STEWARD/STEWARDESS TOURIST CLASS: Alert, no focal neurologic deficit SKIN: No rash IV: ok Labs Lab Laboratory Tests Test 09/20/16 11:30 Vancomycin Level Trough 12.0mcg/mL (10.0-20.0) Vancomycin Last Dose Date 09/19/16 Vancomycin Last Dose Time 1200 Objective Assessment Cellulitis of RLE - better -Failed OP doxy Leukocytosis MRSA nares positive Dementia HTN Plan Plan of Care D/c vanc Zyvox for 7 more days Cont Leg compression Cont Leg elevation Ok to transfer ANN-MARIE VIDES MD Sep 21, 2016 10:23
[2016-09-21 10:50] VITALS: BP 161/70
[2016-09-21] MEDS ORDERED: FERR-26 PO (11:33)
[2016-09-21] MEDS ORDERED: LINE600T PO (11:33)
== END 2016-09-21 15:58 | DRG 603 ==
LOC: ER 11:59 → 5 SOUTH 13:59
PROVIDERS: ADMIT Internal Medicine; ATTEND Internal Medicine
DX: L03.115 Cellulitis of right lower limb (principal); R65.10 Systemic inflammatory response syndrome (SIRS) of non-infectious origin without acute organ dysfunction; I50.32 Chronic diastolic (congestive) heart failure; A49.02 Methicillin resistant Staphylococcus aureus infection, unspecified site; F03.90 Unspecified dementia, unspecified severity, without behavioral disturbance, psychotic disturbance, mood disturbance, and anxiety; D50.9 Iron deficiency anemia, unspecified; E87.6 Hypokalemia; Z90.49 Acquired absence of other specified parts of digestive tract; Z79.899 Other long term (current) drug therapy; Z90.710 Acquired absence of both cervix and uterus; I11.0 Hypertensive heart disease with heart failure
CPT/HCPCS: 36415; 80048; 80202; 82728; 83540; 83550; 83880; 85007; 85027; 87641; 93971; 94250; 94760; 96374; J1756; J3370; J3480; J7040; J7050; 99285-25; J7030